=== PATIENT | male | born 1995 | race Caucasian/White ===

== ENCOUNTER 2016-11-05 18:28 | Emergency (ER) | payer MEDICAID ==
[~2016-11-05] VITALS: Ht 167.6 cm; Wt 84.0 kg
[2016-11-05] MEDS ORDERED: IBUPROFEN 600MG TABLET PO ONE (20:15)
[2016-11-05 20:37] LABS: CLARITY URINE CLEAR (CLEAR); COLOR URINE YELLOW (YELLOW); GLUCOSE URINE NEGATIVE (NEGATIVE); KETONES URINE TRACE (NEGATIVE); LEUKOCYTE ESTERASE URINE NEGATIVE (NEGATIVE); NITRITE URINE NEGATIVE (NEGATIVE); OCCULT BLOOD URINE 1+ (NEGATIVE); PH URINE 5.5 (4.5-8.0); PROTEIN URINE NEGATIVE (NEGATIVE); SPECIFIC GRAVITY URINE 1.012 (1.005-1.030); UROBILINOGEN URINE 0.2 E.U./dL (0.2-1.0)
[2016-11-05 20:53] LABS: BACTERIA URINE TRACE; RBC URINE 0-2 /hpf (0-2); SQUAMOUS EPITHELIAL CELL URINE NONE SEEN /lpf (RARE/1+); WBC URINE NONE SEEN /hpf (0-2)
[2016-11-05 21:39] LABS: BASOPHILS % 0.8 % (0.0-2.0); EOSINOPHILS % 0.4 % (0.0-5.0); HEMATOCRIT. 44.1 % (42.0-52.0); HEMOGLOBIN. 15.2 g/dL (14.0-18.0); LYMPHOCYTES % 19.3 % (20.0-50.0); MEAN CORPUSCULAR HEMOGLOBIN 28.6 pg (28.0-32.0); MEAN CORPUSCULAR HGB CONC 34.5 g/dL (31.0-37.0); MEAN CORPUSCULAR VOLUME 82.7 fL (80.0-94.0); MONOCYTES % 7.7 % (2.0-8.0); NEUTROPHILS % 71.8 % (40.0-76.0); PLATELET 272 x1000/uL (130-400); RED BLOOD CELL COUNT 5.33 mill/uL (4.7-6.1); RED CELL DISTRIBUTION WIDTH 13.1 % (11.6-14.6); WHITE BLOOD COUNT 19.1 x1000/uL (4.5-11.0)
[2016-11-05 21:43] LABS: CHLORIDE 99 mEq/L (98-107); INDEX HEMOLYSI 1 (1-3); INDEX ICTERIC 1 (1-4); INDEX LIPEMIC 1 (1-3)
[2016-11-05 21:48] LABS: ANION GAP 16; CARBON DIOXIDE 24 mEq/L (21-32); LIPASE 137 IU/L (73-393); UREA NITROGEN BLOOD 9 mg/dL (7-21); eGFR > 60 mL/min (>60)
[2016-11-05 23:22] VITALS: BP 104/64
== END 2016-11-05 23:22 | disposition home or self-care (01) ==
LOC: ER 19:42
DX: K57.32 Diverticulitis of large intestine without perforation or abscess without bleeding (principal)
CPT/HCPCS: 36415; 74176; 80048; 81001; 83690; 85025; 99285

== ENCOUNTER 2017-07-21 11:52 | Emergency (ER) | payer MEDICAID ==
[~2017-07-21] VITALS: Ht 167.6 cm; Wt 90.0 kg
[2017-07-21 12:26] VITALS: BP 136/83
== END 2017-07-21 19:41 | disposition left against medical advice (07) ==
LOC: ER 13:05
DX: Z53.21 Procedure and treatment not carried out due to patient leaving prior to being seen by health care provider (principal)

== ENCOUNTER 2017-10-18 17:31 | Emergency (ER) | payer MEDICAID ==
[~2017-10-18] VITALS: Ht 167.6 cm; Wt 84.0 kg
[2017-10-18 17:44] VITALS: BP 138/92
[2017-10-18 18:19] LABS: CLARITY URINE CLEAR (CLEAR); COLOR URINE DARK YELLOW (YELLOW); KETONES URINE 3+ (NEGATIVE); LEUKOCYTE ESTERASE URINE 1+ (NEGATIVE); NITRITE URINE NEGATIVE (NEGATIVE); OCCULT BLOOD URINE NEGATIVE (NEGATIVE); PH URINE 5.5 (4.5-8.0); PROTEIN URINE NEGATIVE (NEGATIVE); SPECIFIC GRAVITY URINE 1.029 (1.005-1.030); UROBILINOGEN URINE 0.2 E.U./dL (0.2-1.0)
== END 2017-10-19 02:10 | disposition left against medical advice (07) ==
LOC: ER 18:03
DX: Z53.21 Procedure and treatment not carried out due to patient leaving prior to being seen by health care provider (principal)
CPT/HCPCS: 81003

== ENCOUNTER 2019-04-09 18:06 | Emergency (ER) | payer MEDICAID ==
[~2019-04-09] VITALS: Ht 167.6 cm; Wt 98.0 kg
[2019-04-09] MEDS ORDERED: KETOROLAC 30MG/ML VIAL IV STA (22:56)
[2019-04-09] MEDS ORDERED: SODIUM CHLORIDE 0.9% 1,000 ML IV ONE (22:56)
[2019-04-09] MEDS ORDERED: METRONIDAZOLE 500 MG PREMIX 100 ML IV ONE (23:00)
[2019-04-09] MEDS ORDERED: LEVOFLOXACIN 750MG PREMIX 150 ML IV ONE (23:00)
[2019-04-09 23:38] LABS: BASOPHILS % 0.3 % (0.0-2.0); CHLORIDE 106 mEq/L (98-107); EOSINOPHILS % 0.6 % (0.0-5.0); HEMATOCRIT. 47.6 % (42.0-52.0); HEMOGLOBIN. 16.1 g/dL (14.0-18.0); MEAN CORPUSCULAR VOLUME 85.6 fL (80.0-94.0); MEAN PLATELET VOLUME 8.9 fl (7.4-10.4); NEUTROPHILS % 76.1 % (40.0-76.0); PLATELET 248 x1000/uL (130-400); RED BLOOD CELL COUNT 5.56 mill/uL (4.7-6.1); RED CELL DISTRIBUTION WIDTH 13.4 % (11.6-14.6)
[2019-04-10 02:46] VITALS: BP 113/61
== END 2019-04-10 02:48 | disposition home or self-care (01) ==
LOC: ER 18:06
DX: K57.92 Diverticulitis of intestine, part unspecified, without perforation or abscess without bleeding (principal); R03.0 Elevated blood-pressure reading, without diagnosis of hypertension
CPT/HCPCS: 36415; 71045; 80053; 83605; 83690; 85025; 87040; 96365; 96366; 96367; 96375; 99284; J1885; J1956; J3490; J7030; Z7610